=== PATIENT | female | born 1950 | race Caucasian/White ===

== ENCOUNTER → 2020-03-14 09:00 | Outpatient (BNVA) | payer MEDICARE, SELFPAY | PROVIDERS: Family Provider Family Medicine; PCP Nurse Practitioner Family; Visit Provider Family Medicine | DX: I10 Essential (primary) hypertension (principal) | CPT/HCPCS: 80053; 80061; 84439; 84443 ==

== ENCOUNTER → 2020-10-31 09:27 | Outpatient (BNVA) | payer MEDICARE, SELFPAY | PROVIDERS: Family Provider Family Medicine; PCP Nurse Practitioner Family; Visit Provider Nurse Practitioner Family | DX: I10 Essential (primary) hypertension (principal); R35.0 Frequency of micturition | CPT/HCPCS: 80053; 80061; 81000 ==

== ENCOUNTER → 2021-02-18 09:25 | Outpatient (BNVA) | payer MEDICARE, SELFPAY | PROVIDERS: Family Provider Family Medicine; PCP Nurse Practitioner Family; Visit Provider Nurse Practitioner Family | DX: M54.9 Dorsalgia, unspecified (principal); N30.01 Acute cystitis with hematuria; R30.0 Dysuria; Z68.34 Body mass index [BMI] 34.0-34.9, adult | CPT/HCPCS: 81000 ==

== ENCOUNTER → 2021-11-06 12:04 | Outpatient (BNVA) | payer MEDICARE, SELFPAY | PROVIDERS: Family Provider Family Medicine; PCP Nurse Practitioner Family; Visit Provider Nurse Practitioner Family | DX: J02.9 Acute pharyngitis, unspecified (principal); J06.9 Acute upper respiratory infection, unspecified | CPT/HCPCS: 87880 ==

== ENCOUNTER → 2021-11-19 09:37 | Outpatient (BNVA) | payer MEDICARE, SELFPAY | PROVIDERS: Family Provider Family Medicine; PCP Nurse Practitioner Family; Visit Provider Nurse Practitioner Family | DX: R10.9 Unspecified abdominal pain (principal) | CPT/HCPCS: 81000 ==

== ENCOUNTER → 2021-12-01 09:16 | Outpatient (BNVA) | payer MEDICARE, SELFPAY | PROVIDERS: Family Provider Family Medicine; PCP Nurse Practitioner Family; Visit Provider Nurse Practitioner Family | DX: I10 Essential (primary) hypertension (principal); I48.91 Unspecified atrial fibrillation | CPT/HCPCS: 80053; 80061; 84439; 84443 ==

== ENCOUNTER → 2022-10-12 10:54 | Outpatient (BNVA) | payer MEDICARE, SELFPAY | PROVIDERS: Family Provider Family Medicine; PCP Nurse Practitioner Family; Visit Provider Nurse Practitioner Family | DX: R41.82 Altered mental status, unspecified (principal); R30.0 Dysuria | CPT/HCPCS: 81003 ==

== ENCOUNTER 2023-01-03 06:00 | Outpatient (RCR) | payer MEDICARE, SELFPAY | END 2023-02-02 23:59 | disposition home or self-care (01) | LOC: GPT 06:00 | PROVIDERS: Visit Provider Nurse Practitioner Family | DX: M54.6 Pain in thoracic spine (principal); M47.894 Other spondylosis, thoracic region | CPT/HCPCS: 97110; 97112; 97140; 97161; 97530 ==

== ENCOUNTER → 2023-01-17 11:12 | Outpatient (BNVA) | payer MEDICARE, SELFPAY | PROVIDERS: PCP Nurse Practitioner Family; Visit Provider Nurse Practitioner Family | DX: R39.15 Urgency of urination (principal) | CPT/HCPCS: 81000; 81003 ==

== ENCOUNTER → 2024-03-19 11:00 | Outpatient (BNVA) | payer MEDICARE, SELFPAY | PROVIDERS: PCP Nurse Practitioner Family; Visit Provider Family Medicine | DX: R35.0 Frequency of micturition (principal); R39.15 Urgency of urination | CPT/HCPCS: 81000 ==

== ENCOUNTER → 2024-04-16 11:20 | Outpatient (BNVA) | payer MEDICARE, SELFPAY | PROVIDERS: PCP Nurse Practitioner Family; Visit Provider Family Medicine | DX: G62.9 Polyneuropathy, unspecified; M35.3 Polymyalgia rheumatica; R30.0 Dysuria; I10 Essential (primary) hypertension; I48.91 Unspecified atrial fibrillation; R35.0 Frequency of micturition; R73.9 Hyperglycemia, unspecified | CPT/HCPCS: 80053; 80503; 81000; 82607; 82728; 82746; 82785; 83036; 84439; 84443; 85007; 85025; 86001; 86003; 86008; 86140 ==

== ENCOUNTER → 2024-07-30 10:21 | Outpatient (BNVA) | payer MEDICARE, SELFPAY | PROVIDERS: PCP Family Medicine; Visit Provider Family Medicine | DX: R53.82 Chronic fatigue, unspecified; R35.0 Frequency of micturition | CPT/HCPCS: 80053; 81000; 82306; 82607; 82728; 82746; 83735; 84439; 84443; 85025; 86140 ==

== ENCOUNTER → 2025-01-23 09:59 | Outpatient (BNVA) | payer MEDICARE, SELFPAY | PROVIDERS: PCP Family Medicine; Visit Provider Nurse Practitioner Family | DX: R30.0 Dysuria (principal) | CPT/HCPCS: 81000; 87086 ==

== ENCOUNTER → 2025-02-12 12:20 | Outpatient (BNVA) | payer MEDICARE, SELFPAY | PROVIDERS: PCP Family Medicine; Visit Provider Family Medicine | DX: R05.9 Cough, unspecified (principal); R49.0 Dysphonia; R09.89 Other specified symptoms and signs involving the circulatory and respiratory systems; I48.91 Unspecified atrial fibrillation; I10 Essential (primary) hypertension; M79.89 Other specified soft tissue disorders; E87.6 Hypokalemia; E83.42 Hypomagnesemia; R53.82 Chronic fatigue, unspecified; R30.0 Dysuria; R79.89 Other specified abnormal findings of blood chemistry; R35.0 Frequency of micturition | CPT/HCPCS: 71046; 80048; 80061; 81000; 82607; 82746; 83735; 83880; 84443; 85027; 87077; 87086; 87184 ==

== ENCOUNTER → 2025-06-11 09:51 | Outpatient (BNVA) | payer MEDICARE, SELFPAY | PROVIDERS: PCP Family Medicine; Visit Provider Nurse Practitioner Family | DX: R39.9 Unspecified symptoms and signs involving the genitourinary system (principal) | CPT/HCPCS: 81000 ==